=== PATIENT | female | born 1950 | race Caucasian/White ===

== ENCOUNTER → 2020-11-18 14:54 | Outpatient (BNVA) | payer MEDICARE, SELFPAY | PROVIDERS: PCP Internal Medicine; Visit Provider Hospitalist | DX: J18.9 Pneumonia, unspecified organism (principal); R91.8 Other nonspecific abnormal finding of lung field; J98.4 Other disorders of lung; J45.909 Unspecified asthma, uncomplicated | CPT/HCPCS: 99212 ==

== ENCOUNTER 2021-04-23 12:47 | Outpatient (REF) | payer MEDICARE, SELFPAY ==
--- NOTE | ~2021-04-23 | CT_ITS ---
EXAMINATION: CT CHEST WITHOUT CONTRAST CLINICAL INFORMATION: Other nonspecific abnormal finding lung field COMPARISON: Previous CTA of the chest April 2020 TECHNIQUE: Multidetector volumetric CT imaging of the chest was done. Axial MIP volume rendering provided. Sagittal and coronal reformatted images were obtained. This CT examination was performed using dose optimization techniques as appropriate, variously including the following: *Automated exposure control *Adjustment of mA and/or kV according to patient size (this includes techniques or standardized protocols for targeted exams where dose is matched to indication/reason for exam; i.e. 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 There is a scarring or chronic subsegmental atelectasis in the adjacent right middle lobe. There is linear scarring or chronic subsegmental atelectasis in the left lower lobe. These findings are unchanged from previous exam April 2020. The lungs are otherwise clear. There is evidence of mild paraseptal emphysema. MEDIASTINUM: The visualized thyroid gland is unremarkable. There are small mediastinal lymph nodes. No enlarged lymph nodes are seen. The heart does not appear enlarged. There is mild coronary artery calcification. There is no pericardial effusion. The thoracic aorta is normal in caliber. PLEURA: There is no pleural effusion. No pleural mass or thickening. AXILLA: No lymphadenopathy. UPPER ABDOMEN: There may be left renal peripelvic cysts. There is mild diverticulosis of the colon. OSSEOUS STRUCTURES: There are degenerative changes of the thoracic spine. There is mild compression fracture versus Schmorl's node and T4-T5 that appears unchanged. CT/CT chest wo con IMPRESSION: Eventration of the right anterior hemidiaphragm. Chronic scarring or subsegmental atelectasis in the right middle lobe and left lower lobe. These findings are unchanged.
== END 2021-04-23 12:48 | disposition home or self-care (01) ==
LOC: HO.CT 12:47
PROVIDERS: PCP Internal Medicine; Visit Provider Hospitalist
DX: R91.8 Other nonspecific abnormal finding of lung field (principal)
CPT/HCPCS: 71250